=== PATIENT | female | born 1930 | race Caucasian/White ===

== ENCOUNTER 2016-07-11 11:00 | Emergency (ER) | payer MEDICARE, OTHER ==
[~2016-07-11] VITALS: Ht 154.9 cm; Wt 51.0 kg
[2016-07-11 11:01] VITALS: BP 139/63; PULSE 60; RESP 15; TEMP 97.8; O2SAT 100
[2016-07-11] MEDS ORDERED: REST15CA PO (11:17)
[2016-07-11] MEDS ORDERED: ALPR.5 PO (11:17)
[2016-07-11 11:26] VITALS: BP 148/71; PULSE 62; RESP 15; O2SAT 100
--- NOTE | 2016-07-11 11:40 | PD ---
HPI Chief Complaint: Back/ Neck Pain or Injury Time Seen by Provider: 11:39 Travel History International Travel<30 days: No Contact w/Intl Traveler<30days: No Traveled to known affect area: No History of Present Illness HPI 85-year-old female with a history of anxiety presents to the emergency department for evaluation of right hip pain radiating to her right thigh for 3 days. Denies any injury or trauma to her hip or back. The patient states that she and her are here visiting from [place], they rode down on a bus for 2 days to get here last week. States they'll be here for 2 weeks. States that Wednesday, the day before pain began, she took a very long walk on the beach and then went swimming in the pool for a long time as well. States when she woke up the next day she had some pain in her right lower back and hip. States this has been worsening. Describes the pain as a muscle spasm that radiates down to her thigh. States that the pain is aggravated with movement and alleviated with sitting still. States that she has had sciatica on the left side in the past but has never had symptoms like this on the right. She denies any fever, chills, nausea, vomiting, numbness or tingling, weakness, saddle anesthesia, bowel or bladder incontinence, swelling of the legs, calf pain. No other complaints. PFSH Past Medical History Anxiety: Yes Cardiovascular Problems: Yes (HTN) Insomnia: Yes Tetanus Vaccination: > 5 Years Influenza Vaccination: Yes ?: Not Past Surgical History Appendectomy: Yes Hysterectomy: Yes Social History Alcohol Use: Yes (1 TIME A MONTH) Tobacco Use: No Substance Use: No Allergies-Medications (Allergen,Severity, Reaction): Coded Allergies: Contrast Media (Verified Allergy, Severe, EDEMA, 07/11/16) Penicillin (Verified Allergy, Severe, HIVES, 07/11/16) Reported Meds & Prescriptions Reported Meds & Active Scripts Active Robaxin (Methocarbamol) 500 Mg Tab 500 Mg PO TID 5 Days Tramadol (Tramadol HCl) 50 Mg Tab 50 Mg PO Q6H PRN Reported Restoril (Temazepam) 15 Mg Cap 15 Mg PO HS PRN Xanax (Alprazolam) 0.5 Mg Tab 0.5 Mg PO Q6H PRN Review of Systems Except as stated in HPI: all other systems reviewed are Neg Physical Exam Narrative GENERAL: Well-nourished and well-developed pleasant female patient in no acute distress who is nontoxic appearing. SKIN: Warm and dry. HEAD: Normocephalic and atraumatic. EYES: No injection, drainage, or hyphema noted. PERRLA. EOMI. ENT: No nasal drainage noted. Oropharynx is clear. NECK: Supple and the trachea is midline. CARDIOVASCULAR: Regular rate and rhythm. RESPIRATORY: Breath sounds are equal bilaterally with no accessory muscle use, wheezing, rhonchi, or crackles. GASTROINTESTINAL: Abdomen is soft, non-tender, and nondistended. MUSCULOSKELETAL: Tenderness to palpation over right SI joint, pain in this location aggravated with active range of motion. Negative SLR. No obvious deformities, swelling, cyanosis, or ecchymosis is present throughout the upper and lower extremities. Patient has full range of motion without any signs of neurovascular compromise. BACK: No obvious deformities, midline bony point tenderness, or crepitus noted throughout the thoracic and lumbar vertebrae. Negative CVA tenderness. NEUROLOGICAL: Awake, alert, and oriented. Normal speech and gait. Cranial nerves are grossly intact. Data Data Last Documented VS Vital Signs Date Time Temp Pulse Resp B/P Pulse Ox O2 Delivery O2 Flow Rate FiO2 07/11/16 11:26 62 15 148/71 100 Room Air 07/11/16 11:01 97.8 Orders Dexamethasone Inj (Decadron Inj) (07/11/16 11:45) [facility] Medical Decision Making Medical Screen Exam Complete: Yes Emergency Medical Condition: Yes Differential Diagnosis Sciatica versus muscle spasm versus muscle strain versus osteoarthritis Narrative Course 85-year-old female presents to the emergency department for evaluation of right hip pain radiating to her right thigh. Patient is afebrile, vital signs are stable. No traumatic injury to her back or leg. The patient's symptoms are consistent with sciatica of the right side. No red flag signs or symptoms. We' ll treat the patient with Decadron 8 mg IV here in the ED and she'll be discharged with Robaxin and tramadol. Discussed with the patient how to safely take tramadol and Robaxin. Discussed supportive care. Advised to follow-up with her PCP. Patient verbalizes understanding and agreement with treatment plan. I discussed the case with my attending physician Dr. Weiss who is aware of the patients history, physical examination findings, and treatment plan. Diagnosis Primary Impression: Sciatica of right side Referrals: Primary Care Physician Patient Instructions: General Instructions, Sciatica (ED) Additional Instructions: Gentle stretches. Apply ice or heat to help alleviate symptoms. Take Tramadol for pain. Take Robaxin for muscle spasms. Be careful as this medication can make you drowsy. Do not take medications with alcohol or while driving. Follow-up with your Primary Care Physician. Return to the ED for any acute worsening of symptoms. Med/Other Pt SpecificInfo: Prescription(s) given Scripts Methocarbamol (Robaxin)500 Mg [id number] Mg PO TID 5 Days Ref 0 Prov:Sonu Weiss MD 07/11/16 Tramadol 50 Mg Tab50 Mg PO Q6H PRN (PAIN SCALE 6 TO 10) #12 TAB Ref 0 Prov:Sonu Weiss MD 07/11/16 Disposition: 01 DISCHARGE HOME Condition: Stable Lauren Lopez Jul 11, 2016 11:40
[2016-07-11] MEDS ORDERED: TRAM50TA PO (11:41)
[2016-07-11] MEDS ORDERED: ROBA500T PO (11:41)
[2016-07-11] MEDS ORDERED: DEXAMETHASONE SOD PHOS 4 MG/ML VIAL IV PUSH ONE (11:45)
[2016-07-11 12:20] VITALS: BP 144/95
== END 2016-07-11 12:22 | disposition home or self-care (01) ==
LOC: NEPC 11:00
DX: M54.31 Sciatica, right side (principal)
CPT/HCPCS: 96374; 99283; J1100